=== PATIENT | male | born 1985 ===

== ENCOUNTER 2019-01-16 21:04 | Emergency (ER) | payer MEDICAID, OTHER ==
[~2019-01-16] VITALS: Ht 182.9 cm; Wt 98.6 kg
[2019-01-16 21:06] VITALS: BP 128/83
[2019-01-16] MEDS ORDERED: CEPHALEXIN 500 MG CAPSULE ONE (21:28)
[2019-01-16] MEDS ORDERED: SULFAMETH./TRIMETHOPRIM DS 800MG/160MG TABLET ONE (21:28)
[2019-01-16] MEDS ORDERED: CEPHALEXIN 500 MG CAPSULE PO ONE (21:30)
[2019-01-16] MEDS ORDERED: SULFAMETH./TRIMETHOPRIM DS 800MG/160MG TABLET PO ONE (21:30)
== END 2019-01-16 22:02 | disposition home or self-care (01) ==
LOC: ED 21:56
DX: S91.312A Laceration without foreign body, left foot, initial encounter (principal); L02.416 Cutaneous abscess of left lower limb; L02.415 Cutaneous abscess of right lower limb; W22.8XXA Striking against or struck by other objects, initial encounter; Y93.89 Activity, other specified; Y92.89 Other specified places as the place of occurrence of the external cause; Y99.8 Other external cause status
CPT/HCPCS: 99283